=== PATIENT | male | born 1960 | race Caucasian/White ===

== ENCOUNTER 2020-02-21 15:22 | Observation (INO) | payer MEDICARE ==
--- NOTE | 2020-02-21 15:42 | ED ---
Abdominal Pain HPI - General Chief Complaint: Abdominal Pain Stated Complaint: abd & leg pain Time Seen by Provider: 02/21/20 15:36 Source: patient Limitations: no limitations - History of Present Illness Initial Comments: Patient is 59-year-old male presenting to the emergency room with a chief complaint of abdominal pain radiating to the leg. Patient states this pain was gradual onset and started approximately 2-3 weeks ago. Patient reports that his gradually increasing severity with pain mostly located in the right lower quadrant radiating distally to the foot. Patient reports he is feeling weaker in his right lower extremity. Patient states he is not able to sleep through the night due to the pain. She reports previous surgical history of orchiectomy with lymph node dissection with postsurgical complications which led to removal of the left kidney. Patient states he had a penis pump inserted and is concerned there might be a clot there. Patient states he is also currently on Suboxone therapy for chronic pain management. Denies any nausea vomiting diarr hea. Denies chest pain shortness of breath. - Related Data Allergies Allergy/AdvReac Type Severity Reaction Status Date / Time baclofen AdvReac Confusion Verified 02/21/20 15:33 Review of Systems ROS Statement: Those systems with pertinent positive or pertinent negative responses have been documented in the HPI. ROS Other: All systems not noted in ROS Statement are negative. Past Medical History Past Medical History: Coronary Artery Disease (CAD), Diabetes Mellitus, Deep Vein Thrombosis (DVT), Hyperlipidemia, Hypertension, Myocardial Infarction ([place]) Additional Past Medical History / Comment(s): Factro 5 History of Any Multi-Drug Resistant Organisms: None Reported Past Surgical History: Back Surgery Additional Past Surgical History / Comment(s): Cervical/back fusion, left testicle reomoved telated to cancer, lymph node dissection, ileum loop sx, left kidney removed, left knee replacement, penile pump, right shoulder sx, IVC filter Past Psychological History: No Psychological Hx Reported Smoking Status: Current every day smoker Past Alcohol Use History: None Reported Past Drug Use History: None Reported General Exam Limitations: no limitations General appearance: alert, in no apparent distress Head exam: Present: atraumatic, normocephalic, normal inspection Eye exam: Present: normal appearance, PERRL, EOMI Pupils: Present: normal accommodation ENT exam: Present: normal exam, normal oropharynx, mucous membranes moist, TM's normal bilaterally, normal external ear exam Neck exam: Present: normal inspection, full ROM. Absent: tenderness Respiratory exam: Present: normal lung sounds bilaterally. Absent: respiratory distress, wheezes Cardiovascular Exam: Present: regular rate, normal rhythm, normal heart sounds GI/Abdominal exam: Present: soft, tenderness (Right lower quadrant abdominal pain. Positive McBurney point.). Absent: distended, guarding, rebound, hernia exam: Present: circumcision. Absent: normal inspection (Suspected penile pump deformity along the ventral aspect of the penis), testicular tenderness Extremities exam: Present: normal inspection, full ROM, normal capillary refill, other (+2 posterior tibialis. Dorsalis pedis cannot be detected. No signs of ischemic changes on the right lower shunted.). Absent: tenderness Back exam: Present: normal inspection, full ROM. Absent: tenderness, CVA tenderness (R), CVA tenderness (L) Neurological exam: Present: alert, oriented X3, normal gait Psychiatric exam: Present: normal affect, normal mood Skin exam: Present: warm, dry, intact, normal color Course Vital Signs 02/21/20 02/21/20 02/21/20 15:27 17:10 18:08 Temperature 97.6 F Pulse Rate 64 56 L 57 L Respiratory 18 18 18 Rate Blood Pressure 139/87 159/98 162/90 O2 Sat by Pulse 95 99 98 Oximetry Medical Decision Making - Medical Decision Making Patient is 59-year-old male presenting to the emergency department with a chief complaint abdominal pain going to the leg. On physical examination, there is no suspected ischemic changes and right lower extremity. However, patient appears to have increased weakness along with his history of hypercholesterolemia and hypertension, there was a concern for PAD. Renal function is within normal limits. Radiology cleared the patient for CT imaging with contrast due to having only one kidney. CT of abdomen and pelvis reveals a possible cause of the pain in the right lower quadrant could be correlated to the function of the penis pump prosthesis. All major arterial passages in the right lower extremity are patent. There was no comment on the appendix. Patient was given analgesia. Case was discussed with who discussed the case with urology, , who does not believe the pain is related to prosthesis failure. Patient was given an additional 4 mg of morphine and Dilaudid. Patient appears to have intractable abdominal pain. Patient will be admitted for observation, pain control and a general surgery consult. Admitting physician is General surgery on consult - Lab Data Result diagrams: 02/21/20 16:08 02/21/20 16:08 Lab Results 02/21/20 02/21/20 02/21/20 Range/Units 16:08 16:08 16:08 WBC 5.4 (3.8-10.6) k/uL RBC 4.48 (4.30-5.90) m/uL Hgb 13.4 (13.0-17.5) gm/dL Hct 42.2 (39.0-53.0) % MCV 94.1 (80.0-100.0) fL MCH 30.0 (25.0-35.0) pg MCHC 31.8 (31.0-37.0) g/dL RDW 13.7 (11.5-15.5) % Plt Count 244 (150-450) k/uL Neutrophils % 65 % Lymphocytes % 24 % Monocytes % 5 % Eosinophils % 5 % Basophils % 1 % Neutrophils # 3.5 (1.3-7.7) k/uL Lymphocytes # 1.3 (1.0-4.8) k/uL Monocytes # 0.2 (0-1.0) k/uL Eosinophils # 0.2 (0-0.7) k/uL Basophils # 0.0 (0-0.2) k/uL PT (9.0-12.0) sec INR (<1.2) APTT (22.0-30.0) sec Sodium 139 (137-145) mmol/L Potassium 4.6 (3.5-5.1) mmol/L Chloride 104 (98-107) mmol/L Carbon Dioxide 31 H (22-30) mmol/L Anion Gap 4 mmol/L BUN 16 (9-20) mg/dL Creatinine 0.71 (0.66-1.25) mg/dL Est GFR (CKD-EPI)AfAm >90 (>60 ml/min/1.73 sqM) Est GFR (CKD-EPI)NonAf >90 (>60 ml/min/1.73 sqM) Glucose 95 (74-99) mg/dL Calcium 10.3 H (8.4-10.2) mg/dL Total Bilirubin 0.5 (0.2-1.3) mg/dL AST 33 (17-59) U/L ALT 17 (4-49) U/L Alkaline Phosphatase 68 (38-126) U/L Total Protein 7.1 (6.3-8.2) g/dL Albumin 4.3 (3.5-5.0) g/dL Urine Color Yellow Urine Appearance Clear (Clear) Urine pH 5.5 (5.0-8.0) Ur Specific [place] 1.025 (1.001-1.035) Urine Protein Negative (Negative) Urine Glucose (UA) Negative (Negative) Urine Ketones Negative (Negative) Urine Blood Negative (Negative) Urine Nitrite Negative (Negative) Urine Bilirubin Negative (Negative) Urine Urobilinogen <2.0 (<2.0) mg/dL Ur Leukocyte Esterase Negative (Negative) 02/21/20 Range/Units 16:08 WBC (3.8-10.6) k/uL RBC (4.30-5.90) m/uL Hgb (13.0-17.5) gm/dL Hct (39.0-53.0) % MCV (80.0-100.0) fL MCH (25.0-35.0) pg MCHC (31.0-37.0) g/dL RDW (11.5-15.5) % Plt Count (150-450) k/uL Neutrophils % % Lymphocytes % % Monocytes % % Eosinophils % % Basophils % % Neutrophils # (1.3-7.7) k/uL Lymphocytes # (1.0-4.8) k/uL Monocytes # (0-1.0) k/uL Eosinophils # (0-0.7) k/uL Basophils # (0-0.2) k/uL PT 10.1 (9.0-12.0) sec INR 1.0 (<1.2) APTT 28.9 (22.0-30.0) sec Sodium (137-145) mmol/L Potassium (3.5-5.1) mmol/L Chloride (98-107) mmol/L Carbon Dioxide (22-30) mmol/L Anion Gap mmol/L BUN (9-20) mg/dL Creatinine (0.66-1.25) mg/dL Est GFR (CKD-EPI)AfAm (>60 ml/min/1.73 sqM) Est GFR (CKD-EPI)NonAf (>60 ml/min/1.73 sqM) Glucose (74-99) mg/dL Calcium (8.4-10.2) mg/dL Total Bilirubin (0.2-1.3) mg/dL AST (17-59) U/L ALT (4-49) U/L Alkaline Phosphatase (38-126) U/L Total Protein (6.3-8.2) g/dL Albumin (3.5-5.0) g/dL Urine Color Urine Appearance (Clear) Urine pH (5.0-8.0) Ur Specific [place] (1.001-1.035) Urine Protein (Negative) Urine Glucose (UA) (Negative) Urine Ketones (Negative) Urine Blood (Negative) Urine Nitrite (Negative) Urine Bilirubin (Negative) Urine Urobilinogen (<2.0) mg/dL Ur Leukocyte Esterase (Negative) Disposition Clinical Impression: Intractable abdominal pain Disposition: ADMITTED IP TO THIS [facility] Condition: Good Instructions (If sedation given, give patient instructions): Abdominal Pain (ED) Additional Instructions: She will be admitted Is patient prescribed a controlled substance at d/c from ED?: No Referrals: Joe Weaver DO [Primary Care Provider] - 1-2 days Time of Disposition: 19:36
[2020-02-21] MEDS ORDERED: MORPHINE SULFATE 4 MG/ML SYRINGE IV STA (15:55)
[2020-02-21] MEDS ORDERED: SODIUM CHLORIDE 0.9% 500 ML 500 ML IV STA (15:55)
[2020-02-21 16:26] LABS: Basophils % (A) 1 %; Eosinophils # (A) 0.2 k/uL (0-0.7); Eosinophils % (A) 5 %; HCT 42.2 % (39.0-53.0); HGB 13.4 gm/dL (13.0-17.5); Lymphocytes # (A) 1.3 k/uL (1.0-4.8); Lymphocytes % (A) 24 %; MCHC 31.8 g/dL (31.0-37.0); MCV 94.1 fL (80.0-100.0); Mean Platelet Volume 6.5; Monocytes # (A) 0.2 k/uL (0-1.0); Monocytes % (A) 5 %; Neutrophils # (A) 3.5 k/uL (1.3-7.7); Neutrophils % (A) 65 %; Platelet Count 244 k/uL (150-450); RBC 4.48 m/uL (4.30-5.90); RDW 13.7 % (11.5-15.5); WBC 5.4 k/uL (3.8-10.6)
[2020-02-21 16:28] LABS: Appearance,Urine Clear (Clear); Bilirubin,Urine Negative (Negative); Blood,Urine Negative (Negative); Color,Urine Yellow; Glucose,Urine (UA) Negative (Negative); Ketones,Urine Negative (Negative); Leukocyte Esterase,Urine Negative (Negative); Nitrite,Urine Negative (Negative); PH, Urine 5.5 (5.0-8.0); Protein,Urine Negative (Negative); Specific Gravity,Urine 1.025 (1.001-1.035); Urobilinogen,Urine <2.0 mg/dL (<2.0)
[2020-02-21 16:36] LABS: ALT 17 U/L (4-49); AST 33 U/L (17-59); African American GFR (CKD) >90 (>60 ml/min/1.73 sqM); Albumin 4.3 g/dL (3.5-5.0); Alkaline Phosphatase 68 U/L (38-126); Anion Gap 4 mmol/L; Blood Urea Nitrogen 16 mg/dL (9-20); Calcium 10.3 mg/dL (8.4-10.2); Carbon Dioxide 31 mmol/L (22-30); Chloride 104 mmol/L (98-107); Glucose 95 mg/dL (74-99); Non-African American GFR(CKD) >90 (>60 ml/min/1.73 sqM); Potassium 4.6 mmol/L (3.5-5.1); Sodium 139 mmol/L (137-145); Total Bilirubin 0.5 mg/dL (0.2-1.3); Total Protein 7.1 g/dL (6.3-8.2)
[2020-02-21 16:38] LABS: Partial Thromboplastin Time 28.9 sec (22.0-30.0); Prothrombin Time 10.1 sec (9.0-12.0)
[2020-02-21] MEDS ORDERED: MORPHINE SULFATE 4 MG/ML SYRINGE IVP STA (18:00)
--- NOTE | 2020-02-21 18:18 | CT ---
EXAMINATION TYPE: CT angio abd aorta w/Runoff DATE OF EXAM: 02/21/2020 COMPARISON: None HISTORY: Right lower quadrant pain (question appendicitis) that radiates down right leg. PAD in right leg. CT DLP: 2040.2 mGycm, Automated Exposure Control for Dose Reduction was Utilized. CONTRAST: CT scan of the abdomen and pelvis is performed without oral and without and with IV Contrast, patient injected with 100 mL of Isovue 370. Three-dimensional reconstructions performed on an alternate work station FINDINGS: There are extensive postop changes within the abdomen, retroperitoneal region, there is art ifact present, additionally patient shows posterior fusion changes at L4-S1 also causing some streak artifact. Postop changes noted to the bowel, there are bowel sutures present. Penile prosthesis is al so in place, the reservoir appears deflated in the right lower quadrant. LUNG BASES: No significant abnormality is appreciated. LIVER/GB: No significant abnormality is appreciated. PANCREAS: No significant abnormality is seen. SPLEEN: No significant abnormality is seen. ADRENALS: No significant abnormality is seen. KIDNEYS: Left kidney is not seen. Right kidney shows compensatory hypertrophy change. BOWEL: No significant abnormality is seen. PROSTATE/SEMINAL VESICLES: No gross abnormality seen. Urinary bladder shows wall thickening possibly due to outlet obstruction. LYMPH NODES: No greater than 1cm abdominal or pelvic lymph nodes are appreciated. OSSEOUS STRUCTURES: Postop change noted to the left knee. Probable injection granuloma over the right gluteal region. OTHER: The aorta does not show any evident dissection or aneurysm. Portions are obscured by artifact. The common iliac, internal and external iliac, common femoral, deep and superficial femoral arteries are patent. Popliteal arteries and trifurcations proximally are patent, outflow not well seen distal ly within the leg likely due to timing of the bolus and scanning. Inferior vena cava filter is presen t on the right in the infrarenal location. IMPRESSION: Difficult related reservoir in the right lower quadrant, correlate for function of the pr osthesis. Additional findings above. Additional findings above.
[2020-02-21] MEDS ORDERED: HYDROmorphone 0.5 MG/0.5 ML SYRINGE IVP PRN ×2 (19:23→23:23)
[2020-02-21] MEDS ORDERED: NALOXONE 0.4 MG/ML 1 ML VIAL IV PRN (19:23)
[2020-02-21] MEDS ORDERED: ACETAMINOPHEN TAB 325 MG TAB PO PRN (19:23)
[2020-02-21] MEDS ORDERED: ONDANSETRON 4 MG/2 ML VIAL IVP PRN (19:23)
[2020-02-21 20:53] LABS: Glucose,Whole Blood 80 mg/dL (75-99)
[2020-02-21] MEDS: SODIUM CHLORIDE 0.9% 1,000 ML IV SCH (21:26)
[2020-02-21] MEDS: HYDROmorphone 1 MG/ML 1 ML SYRINGE IVP PRN (21:26)
[2020-02-21] MEDS: LORazepam 2 MG/ML INJ IV PRN (22:42)
[2020-02-21] MEDS ORDERED: KETOROLAC 15 MG/ML 1 ML VIAL IVP PRN (23:11)
[2020-02-21] MEDS ORDERED: PREGABALIN 50 MG CAP PO SCH (23:15)
--- NOTE | 2020-02-21 23:41 | P.HPIM ---
History of Present Illness H&P Date: 02/21/20 Chief Complaint: abd pain 59 year old male with DM, testicular cancer 1983, factor 5 laiden and venous thromboembolism, fusion L4-S1 patient comes in with complaint of 3 week history of right lower quadrant abd pain , he was evaluated by his PCP, who gave him a 10 course of ABx for presumed colitis , with no much benefit, then he was referred to orthopedics for his chronic low back pain and radiculopathy, as pain radiated from his right groin all way to his big toe on the right side. with some numbness over the sole of his right foot. he reports sharp shooting pain 10/10 in severity at times with certain positions, but improves with laying down. denies any nausea , vomting, fever, chest pain trouble breathing, diarrhea or GI bleeding, denies any injuries. 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 patient was seen by orthopedic as outpatient , and ordered an MRI of his lower back that is scheduled for the he is currently using subaxone for pain control, when i asked him if that was for addiction , he denied , and said , that he preferred this medicine over oxycodone and his doctor has been prescribing it for him patient had a CT of the abd in the ED, no acute pathology noted, and blood work was unremarkable overall. patient admitted for pain control , surgery and ortho evaluation Review of Systems Pertinent positives as noted in HPI. All other systems were reviewed and are negative Past Medical History Past Medical History: Coronary Artery Disease (CAD), Cancer, Diabetes Mellitus, Deep Vein Thrombosis (DVT), Hyperlipidemia, Hypertension, Myocardial Infarction ([place]), Pneumonia, Sleep Apnea/CPAP/BIPAP Additional Past Medical History / Comment(s): Factor 5, sleep apnea resolved with weight loss, cancer left testicular, gynocomastia wih surgical correction, psoriatic arthritis with infusions Last Myocardial Infarction Date:: 2012 History of Any Multi-Drug Resistant Organisms: None Reported Past Surgical History: Back Surgery Additional Past Surgical History / Comment(s): Cervical/back fusion, left testicle reomoved telated to cancer, lymph node dissection, ileum loop sx, left kidney removed, left knee replacement, penile pump, right shoulder sx, IVC filter, neck and arm tumor removal, colonoscopies with polyp removal Past Anesthesia/Blood Transfusion Reactions: No Reported Reaction Past Psychological History: Depression Smoking Status: Current every day smoker Past Alcohol Use History: None Reported Past Drug Use History: None Reported - Past Family History Mother Additional Family Medical History / Comment(s): arthritis Father Additional Family Medical History / Comment(s): AAA Brother(s) Family Medical History: No Reported History Sister(s) Family Medical History: No Reported History Son(s) Additional Family Medical History / Comment(s): bowel issues Medications and Allergies Home Medications Medication Instructions Recorded Confirmed Type Aspirin EC [Ecotrin Low Dose] 81 mg PO DAILY 02/21/20 02/21/20 History Budesonide/Formoterol Fumarate 2 puff INHALATION RT-BID 02/21/20 02/21/20 History [Symbicort 160-4.5 Mcg Inhaler] Buprenorphine HCl/Naloxone HCl 1 film SUBLINGUAL BID PRN 02/21/20 02/21/20 History [Buprenorp-Nalox 4-1 mg Sl Film] Calcium Citrate/Vitamin D3 1 cap PO DAILY 02/21/20 02/21/20 History [Citracal + D Maximum Caplet] Cholecalciferol [Vitamin D3 (25 5,000 unit PO DAILY 02/21/20 02/21/20 History Mcg = 1000 Iu)] DULoxetine HCL [Cymbalta] 60 mg PO DAILY 02/21/20 02/21/20 History Ergocalciferol [Vitamin D2] 50,000 unit PO SA 02/21/20 02/21/20 History Fenofibrate [Lofibra] 160 mg PO DAILY 02/21/20 02/21/20 History Folic Acid 1 mg PO DAILY 02/21/20 02/21/20 History Metoprolol Succinate (ER) [Toprol 12.5 mg PO DAILY 02/21/20 02/21/20 History Xl] Multivitamins, Thera [Multivitamin 1 tab PO DAILY 02/21/20 02/21/20 History (formulary)] Pregabalin 50 mg PO TID 02/21/20 02/21/20 History Psyllium Husk [Metamucil] 0.4 gm PO DAILY 02/21/20 02/21/20 History Rivaroxaban [Xarelto] 20 mg PO DAILY 02/21/20 02/21/20 History Simvastatin [Zocor] 40 mg PO HS 02/21/20 02/21/20 History Ultra T Male Max 1 cap PO DAILY 02/21/20 02/21/20 History Allergies Allergy/AdvReac Type Severity Reaction Status Date / Time baclofen AdvReac Confusion Verified 02/21/20 20:45 Physical Exam Vitals: Vital Signs Temp Pulse Resp BP Pulse Ox 02/21/20 19:40 98.0 F 52 L 18 150/94 99 02/21/20 18:08 57 L 18 162/90 98 02/21/20 17:10 56 L 18 159/98 99 02/21/20 15:27 97.6 F 64 18 139/87 95 Intake and Output 02/21/20 02/21/20 02/21/20 06:59 14:59 22:59 Other: Voiding Method Toilet Weight 77.111 kg Constitutional: No acute distress, conversant, pleasant Eyes: Anicteric sclerae, moist conjunctiva, Pupils equal round reactive to light ENMT: NC/AT Oropharynx clear, no erythema,or exudates Neck: Supple, FROM, no masses, or JVD No carotid bruits No thyromegaly Lungs: Clear to auscultation Clear to percussion Normal respiratory effort, no accessory muscle use Cardiovascular: Heart regular in rate and rhythm, No murmurs, gallops, or rubs No peripheral edema Abdominal: Soft tenderness to palpation of the right lower quadrant , no guarding, rebound or rigidity Abdomen moving with respiration Normoactive bowel sounds No hepatomegaly, No splenomegaly No palpable mass No abdominal wall hernia noted Skin: Normal temperature, tone, texture, turgor No induration No subcutaneous nodules No rash, lesions No ulcers palpable lump over the upper outer quadrant of the right buttock, CT showed possible post injection granuloma Extremities: No digital cyanosis No clubbing Pedal pulses intact and symmetrical Radial pulses intact and symmetrical No calf tenderness Psychiatric: Alert and oriented to person, place and time Appropriate affect fair judgement Neuro Muscles Strength 5/5 in bilateral upper extremities, and left lower extremity, and distal muscle group of right lower extremity , some weakness 4/5 of proximal muscle group of the right lower extremity some limitations due to pain Sensation to light touch grossly present throughout Cranial nerves II-XII grossly intact No focal sensory deficits Lymphatics: no palpable cervical or supraclavicular , or inguinal lymph nodes Results CBC & Chem 7: 02/21/20 16:08 02/21/20 16:08 Labs: Abnormal Lab Results - Last 24 Hours (Table) 02/21/20 Range/Units 16:08 Carbon Dioxide 31 H (22-30) mmol/L Calcium 10.3 H (8.4-10.2) mg/dL Thrombosis Risk Factor Assmnt - Choose All That Apply Any of the Below Risk Factors Present?: No Other Risk Factors: Yes Each Risk Factor Represents 2 Points: Age 61-74 years Each Risk Factor Represents 3 Points: Positive Factor V Leiden, History of DVT/PE Other congenital or acquired thrombophilia - If yes, enter type in comment: No Thrombosis Risk Factor Assessment Total Risk Factor Score: 8 Thrombosis Risk Factor Assessment Level: High Risk Assessment and Plan Assessment: chronic low back pain with radiculopathy to the right lower extremity pain control with opioids and toradol ortho consult chronic conditions venous thromboembolism with F5 laiden , on xarelto , s/p IVC filter DM , insulin sliding scale Hypertension , resume home meds history of left testicular cancer, s/p penile prosthesis with malfunction of reservoir , consider OP follow up h/o CAD CODE STATUS:full code DVT prophylaxis: on xarelto Discussed with: Patient, ER, RN Anticipated length of stay < than [address]: home A total of 65 minutes was spent on the care of this complex patient more than 50% of the time was spent in counseling and care coordination.
[2020-02-21] MEDS: ATORVASTATIN 20 MG TAB PO SCH (23:55)
[2020-02-21] MEDS: PREGABALIN 25 MG CAP PO SCH (23:56)
[2020-02-22] MEDS: HYDROmorphone 1 MG/ML 1 ML SYRINGE IVP PRN ×7 (00:11→21:06)
[2020-02-22] MEDS: SYMBICORT 160-4.5 MCG INHALER INHALATION SCH ×3 (02:03→19:31)
[2020-02-22 06:26] LABS: Glucose,Whole Blood 88 mg/dL (75-99)
[2020-02-22 07:36] LABS: Basophils % (A) 1 %; Eosinophils # (A) 0.2 k/uL (0-0.7); Eosinophils % (A) 6 %; HCT 38.7 % (39.0-53.0); HGB 12.5 gm/dL (13.0-17.5); Lymphocytes # (A) 1.3 k/uL (1.0-4.8); Lymphocytes % (A) 35 %; MCH 30.4 pg (25.0-35.0); MCHC 32.2 g/dL (31.0-37.0); MCV 94.5 fL (80.0-100.0); Mean Platelet Volume 6.7; Monocytes # (A) 0.2 k/uL (0-1.0); Monocytes % (A) 6 %; Neutrophils # (A) 1.8 k/uL (1.3-7.7); Neutrophils % (A) 48 %; Platelet Count 218 k/uL (150-450); RDW 13.6 % (11.5-15.5); WBC 3.7 k/uL (3.8-10.6)
[2020-02-22] MEDS: INSULIN ASPART (NovoLOG) 100 UNIT/ML VIAL SQ SCH ×3 (07:42→17:05)
[2020-02-22 07:57] LABS: ALT 14 U/L (4-49); AST 27 U/L (17-59); African American GFR (CKD) >90 (>60 ml/min/1.73 sqM); Albumin 3.2 g/dL (3.5-5.0); Alkaline Phosphatase 63 U/L (38-126); Anion Gap 2 mmol/L; Blood Urea Nitrogen 17 mg/dL (9-20); Calcium 9.3 mg/dL (8.4-10.2); Carbon Dioxide 29 mmol/L (22-30); Chloride 109 mmol/L (98-107); Glucose 89 mg/dL (74-99); Non-African American GFR(CKD) >90 (>60 ml/min/1.73 sqM); Potassium 4.7 mmol/L (3.5-5.1); Sodium 140 mmol/L (137-145); Total Bilirubin 0.3 mg/dL (0.2-1.3); Total Protein 5.7 g/dL (6.3-8.2)
[2020-02-22] MEDS: DULoxetine HCL 60 MG CAPSULE.DR PO SCH (09:25)
[2020-02-22] MEDS: PREGABALIN 25 MG CAP PO SCH ×3 (09:25→21:02)
[2020-02-22] MEDS: METOPROLOL SUCCINATE (ER) 25 MG TAB.ER.24H PO SCH (09:25)
[2020-02-22] MEDS: RIVAROXABAN 20 MG TAB PO SCH (09:25)
[2020-02-22] MEDS: ASPIRIN 81 MG PO SCH (09:26)
[2020-02-22] MEDS: PSYLLIUM HUSK 100% 6 GM PACKET PO SCH (09:26)
--- NOTE | 2020-02-22 11:18 | XR ---
EXAMINATION TYPE: XR lumbar spine 2 or 3V DATE OF EXAM: 02/22/2020 CLINICAL HISTORY: Low back pain. TECHNIQUE: Frontal and lateral images of the lumbar spine are obtained. COMPARISON: CTA with runoff from yesterday. FINDINGS: There are 5 lumbar type vertebral bodies redemonstrated. Posterior interpedicular rods and screws transfix L4-S1 levels bilaterally. Artificial disc material noted at these levels. Mild disc space narrowing and anterior spurring L2-L3. Mild disc space L3-L4 level. Alignment satisfactory. Num erous overlying surgical clips from prior abdominal aortic bypass surgery redemonstrated. There is IV C filter at the right L3-L4 level again seen. IMPRESSION: As above
[2020-02-22 11:49] LABS: Glucose,Whole Blood 80 mg/dL (75-99)
[2020-02-22] MEDS: SODIUM CHLORIDE 0.9% 1,000 ML IV SCH (12:47)
--- NOTE | 2020-02-22 13:42 | P.GSCN ---
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 Patient presents to the hospital with a three-week history of right lower quadrant abdominal pain. Patient does report the pain is in the right lower quadrant and right groin area that radiates down his right leg. He's also reporting some numbness in the right foot. He also reported a 20 pound weight loss over the last 3 weeks. He denies any fever, chills, sweats, nausea or vomiting, any change in bowel habits. PAST MEDICAL HISTORY: See list. PAST SURGICAL HISTORY: See list. MEDICATIONS: See list. ALLERGIES: See list. SOCIAL HISTORY: No illicit drug use. REVIEW OF SYSTEMS: CONSTITUTIONAL: Denies fever or chills. HEENT: Denies blurred vision, vision changes, or eye pain. Denies hemoptysis CARDIOVASCULAR: Denies chest pain or pressure. RESPIRATORY: No shortness of breath. GASTROINTESTINAL: See HPI for pertinent findings HEMATOLOGIC: Denies bleeding disorders. GENITOURINARY: Denies any blood in urine or increased urinary frequency. SKIN: Denies pruitis. Denies rash. PHYSICAL EXAM: VITAL SIGNS: Reviewed GENERAL: Well-developed in no acute distress. HEENT: No sclera icterus. Extraocular movements grossly intact. Moist buccal mucosa. Head is atraumatic, normocephalic. No nasal drainage. ABDOMEN: Soft. Nondistended nontender NEUROLOGIC: Alert and oriented. Cranial nerves II through XII grossly intact. LABORATORY DATA: WBC 3.7 hemoglobin 12.5 LFTs normal UA negative IMAGING: Computed tomography scan abdomen and pelvis difficult related reservoir in the right lower quadrant, correlate for function of the prosthesis ASSESSMENT: 1. Right lower quadrant groin pain likely related to patient's orthopedic problems. He has a known lumbar back fusion with chronic back pain and pain now radiating down his right leg. 2. 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 History of DVT and factor V Leiden on Xarelto and history of IVC filter PLAN: -Agree with Spinal orthopedic consult -No surgical intervention from general surgery standpoint -Start patient on regular diet Thank you for this consultation. Physician [employer] Consultant note has been reviewed by physician. Signing provider agrees with the documented findings, assessment, and plan of care. Past Medical History Past Medical History: Coronary Artery Disease (CAD), Cancer, Diabetes Mellitus, Deep Vein Thrombosis (DVT), Hyperlipidemia, Hypertension, Myocardial Infarction ([place]), Pneumonia, Sleep Apnea/CPAP/BIPAP Additional Past Medical History / Comment(s): Factor 5, sleep apnea resolved with weight loss, cancer left testicular, gynocomastia wih surgical correction, psoriatic arthritis with infusions Last Myocardial Infarction Date:: 2012 History of Any Multi-Drug Resistant Organisms: None Reported Past Surgical History: Back Surgery Additional Past Surgical History / Comment(s): Cervical/back fusion, left testicle reomoved telated to cancer, lymph node dissection, ileum loop sx, left kidney removed, left knee replacement, penile pump, right shoulder sx, IVC filter, neck and arm tumor removal, colonoscopies with polyp removal Past Anesthesia/Blood Transfusion Reactions: No Reported Reaction Past Psychological History: Depression Smoking Status: Current every day smoker Past Alcohol Use History: None Reported Past Drug Use History: None Reported - Past Family History Mother Additional Family Medical History / Comment(s): arthritis Father Additional Family Medical History / Comment(s): AAA Brother(s) Family Medical History: No Reported History Sister(s) Family Medical History: No Reported History Son(s) Additional Family Medical History / Comment(s): bowel issues Medications and Allergies Home Medications Medication Instructions Recorded Confirmed Type Aspirin EC [Ecotrin Low Dose] 81 mg PO DAILY 02/21/20 02/21/20 History Budesonide/Formoterol Fumarate 2 puff INHALATION RT-BID 02/21/20 02/21/20 History [Symbicort 160-4.5 Mcg Inhaler] Buprenorphine HCl/Naloxone HCl 1 film SUBLINGUAL BID PRN 02/21/20 02/21/20 History [Buprenorp-Nalox 4-1 mg Sl Film] Calcium Citrate/Vitamin D3 1 cap PO DAILY 02/21/20 02/21/20 History [Citracal + D Maximum Caplet] Cholecalciferol [Vitamin D3 (25 5,000 unit PO DAILY 02/21/20 02/21/20 History Mcg = 1000 Iu)] DULoxetine HCL [Cymbalta] 60 mg PO DAILY 02/21/20 02/21/20 History Ergocalciferol [Vitamin D2] 50,000 unit PO SA 02/21/20 02/21/20 History Fenofibrate [Lofibra] 160 mg PO DAILY 02/21/20 02/21/20 History Folic Acid 1 mg PO DAILY 02/21/20 02/21/20 History Metoprolol Succinate (ER) [Toprol 12.5 mg PO DAILY 02/21/20 02/21/20 History Xl] Multivitamins, Thera [Multivitamin 1 tab PO DAILY 02/21/20 02/21/20 History (formulary)] Pregabalin 50 mg PO TID 02/21/20 02/21/20 History Psyllium Husk [Metamucil] 0.4 gm PO DAILY 02/21/20 02/21/20 History Rivaroxaban [Xarelto] 20 mg PO DAILY 02/21/20 02/21/20 History Simvastatin [Zocor] 40 mg PO HS 02/21/20 02/21/20 History Ultra T Male Max 1 cap PO DAILY 02/21/20 02/21/20 History Allergies Allergy/AdvReac Type Severity Reaction Status Date / Time baclofen AdvReac Confusion Verified 02/21/20 20:45 Surgical - Exam Vital Signs Temp Pulse Resp BP Pulse Ox 97.6 F 64 18 139/87 95 02/21/20 15:27 02/21/20 15:27 02/21/20 15:27 02/21/20 15:27 02/21/20 15:27 Results - Labs 02/22/20 07:20 02/22/20 07:20 Abnormal Lab Results - Last 24 Hours (Table) 02/21/20 02/22/20 02/22/20 Range/Units 16:08 07:20 07:20 WBC 3.7 L (3.8-10.6) k/uL RBC 4.10 L (4.30-5.90) m/uL Hgb 12.5 L (13.0-17.5) gm/dL Hct 38.7 L (39.0-53.0) % Chloride 109 H (98-107) mmol/L Carbon Dioxide 31 H (22-30) mmol/L Calcium 10.3 H (8.4-10.2) mg/dL Total Protein 5.7 L (6.3-8.2) g/dL Albumin 3.2 L (3.5-5.0) g/dL Diabetes panel 02/21/20 02/22/20 Range/Units 16:08 07:20 Sodium 139 140 (137-145) mmol/L Potassium 4.6 4.7 (3.5-5.1) mmol/L Chloride 104 109 H (98-107) mmol/L Carbon Dioxide 31 H 29 (22-30) mmol/L BUN 16 17 (9-20) mg/dL Creatinine 0.71 0.71 (0.66-1.25) mg/dL Glucose 95 89 (74-99) mg/dL Calcium 10.3 H 9.3 (8.4-10.2) mg/dL AST 33 27 (17-59) U/L ALT 17 14 (4-49) U/L Alkaline Phosphatase 68 63 (38-126) U/L Total Protein 7.1 5.7 L (6.3-8.2) g/dL Albumin 4.3 3.2 L (3.5-5.0) g/dL Calcium panel 02/21/20 02/22/20 Range/Units 16:08 07:20 Calcium 10.3 H 9.3 (8.4-10.2) mg/dL Albumin 4.3 3.2 L (3.5-5.0) g/dL Pituitary panel 02/21/20 02/22/20 Range/Units 16:08 07:20 Sodium 139 140 (137-145) mmol/L Potassium 4.6 4.7 (3.5-5.1) mmol/L Chloride 104 109 H (98-107) mmol/L Carbon Dioxide 31 H 29 (22-30) mmol/L BUN 16 17 (9-20) mg/dL Creatinine 0.71 0.71 (0.66-1.25) mg/dL Glucose 95 89 (74-99) mg/dL Calcium 10.3 H 9.3 (8.4-10.2) mg/dL Adrenal panel 02/21/20 02/22/20 Range/Units 16:08 07:20 Sodium 139 140 (137-145) mmol/L Potassium 4.6 4.7 (3.5-5.1) mmol/L Chloride 104 109 H (98-107) mmol/L Carbon Dioxide 31 H 29 (22-30) mmol/L BUN 16 17 (9-20) mg/dL Creatinine 0.71 0.71 (0.66-1.25) mg/dL Glucose 95 89 (74-99) mg/dL Calcium 10.3 H 9.3 (8.4-10.2) mg/dL Total Bilirubin 0.5 0.3 (0.2-1.3) mg/dL AST 33 27 (17-59) U/L ALT 17 14 (4-49) U/L Alkaline Phosphatase 68 63 (38-126) U/L Total Protein 7.1 5.7 L (6.3-8.2) g/dL Albumin 4.3 3.2 L (3.5-5.0) g/dL
--- NOTE | 2020-02-22 13:56 | P.CNOR ---
History of Present Illness - [facility] Consult date: 02/22/20 History of present illness: This patient is a 59 year old male with a past medical history of diabetes, testicular cancer, factor V leiden, DVT currently on Xarelto, lumbar fusion L4- S1 that presented today [facility] emergency department on 02/21/20 with complaints of right lower quadrant pain, with radiation into the groin. He was treated by his PCP on an outpatient basis with oral antibiotics, with no relief. Patient was also referred to orthopedic surgery for back pain. Patient states he was referred to a spine surgeon in [place]. He states he has a history of a lumbar fusion about 5 years, until he began experiencing an increase in low back pain about 3-4 months ago. He states the spine surgeon in [place] ordered an MRI, which was scheduled for February 24. Patient presented to ED yesterday due to increasing right lower quadrant pain. CT abdomen showed no obvious pathology. Patient was admitted under the care of internal medicine with a consult placed to general surgery and orthopedic surgery. At the time of my exam, the patient is complaining of right lower quadrant pain. He is also complaining of mild low back pain. He states he is experiencing pain that radiates down the right leg into the foot. He states that pain is chronic, although has been increasing in 3-4 months. There was no injury. He states he takes suboxone for pain, he used to take Percocet, but patient states it was choice to switch to suboxone. He denies bowel or bladder incontinence. He denies saddle paresthesias. He states he otherwise feels well. He denies severe, chills, nausea, vomiting. Vital signs stable. Past Medical History Past Medical History: Coronary Artery Disease (CAD), Cancer, Diabetes Mellitus, Deep Vein Thrombosis (DVT), Hyperlipidemia, Hypertension, Myocardial Infarction ([place]), Pneumonia, Sleep Apnea/CPAP/BIPAP Additional Past Medical History / Comment(s): Factor 5, sleep apnea resolved with weight loss, cancer left testicular, gynocomastia wih surgical correction, psoriatic arthritis with infusions Last Myocardial Infarction Date:: 2012 History of Any Multi-Drug Resistant Organisms: None Reported Past Surgical History: Back Surgery Additional Past Surgical History / Comment(s): Cervical/back fusion, left testicle reomoved telated to cancer, lymph node dissection, ileum loop sx, left kidney removed, left knee replacement, penile pump, right shoulder sx, IVC filter, neck and arm tumor removal, colonoscopies with polyp removal Past Anesthesia/Blood Transfusion Reactions: No Reported Reaction Past Psychological History: Depression Smoking Status: Current every day smoker Past Alcohol Use History: None Reported Past Drug Use History: None Reported - Past Family History Mother Additional Family Medical History / Comment(s): arthritis Father Additional Family Medical History / Comment(s): AAA Brother(s) Family Medical History: No Reported History Sister(s) Family Medical History: No Reported History Son(s) Additional Family Medical History / Comment(s): bowel issues Medications and Allergies Home Medications Medication Instructions Recorded Confirmed Type Aspirin EC [Ecotrin Low Dose] 81 mg PO DAILY 02/21/20 02/21/20 History Budesonide/Formoterol Fumarate 2 puff INHALATION RT-BID 02/21/20 02/21/20 History [Symbicort 160-4.5 Mcg Inhaler] Buprenorphine HCl/Naloxone HCl 1 film SUBLINGUAL BID PRN 02/21/20 02/21/20 History [Buprenorp-Nalox 4-1 mg Sl Film] Calcium Citrate/Vitamin D3 1 cap PO DAILY 02/21/20 02/21/20 History [Citracal + D Maximum Caplet] Cholecalciferol [Vitamin D3 (25 5,000 unit PO DAILY 02/21/20 02/21/20 History Mcg = 1000 Iu)] DULoxetine HCL [Cymbalta] 60 mg PO DAILY 02/21/20 02/21/20 History Ergocalciferol [Vitamin D2] 50,000 unit PO SA 02/21/20 02/21/20 History Fenofibrate [Lofibra] 160 mg PO DAILY 02/21/20 02/21/20 History Folic Acid 1 mg PO DAILY 02/21/20 02/21/20 History Metoprolol Succinate (ER) [Toprol 12.5 mg PO DAILY 02/21/20 02/21/20 History Xl] Multivitamins, Thera [Multivitamin 1 tab PO DAILY 02/21/20 02/21/20 History (formulary)] Pregabalin 50 mg PO TID 02/21/20 02/21/20 History Psyllium Husk [Metamucil] 0.4 gm PO DAILY 02/21/20 02/21/20 History Rivaroxaban [Xarelto] 20 mg PO DAILY 02/21/20 02/21/20 History Simvastatin [Zocor] 40 mg PO HS 02/21/20 02/21/20 History Ultra T Male Max 1 cap PO DAILY 02/21/20 02/21/20 History Allergies Allergy/AdvReac Type Severity Reaction Status Date / Time baclofen AdvReac Confusion Verified 02/21/20 20:45 Physical Examination On examination, the patient is lying in bed in no apparent distress. He is alert and oriented 3. His head appears normocephalic and. His palate appears nonlabored. On inspection of the low back there is no ecchymosis, erythema, skin discoloration. No open wounds or lacerations. There is mild pain on pal pation of the lumbar spine. No pain on palpation of the C-spine, thoracic spine. Patient has full strength in his bilateral lower extremities. He is able to perform a straight leg raise bilaterally. No weakness with hip flexion, and plantarflexion or dorsiflexion of the ankle or great toe. Motor and sensory is intact in the bilateral extremities. Dorsalis pedis pulse +2. Bilateral lower extremities are warm and well perfused with brisk capillary refill distally. Calf soft and nontender to palpation bilaterally. Results - Labs Labs: Abnormal Lab Results - Last 24 Hours (Table) 02/21/20 02/22/20 02/22/20 Range/Units 16:08 07:20 07:20 WBC 3.7 L (3.8-10.6) k/uL RBC 4.10 L (4.30-5.90) m/uL Hgb 12.5 L (13.0-17.5) gm/dL Hct 38.7 L (39.0-53.0) % Chloride 109 H (98-107) mmol/L Carbon Dioxide 31 H (22-30) mmol/L Calcium 10.3 H (8.4-10.2) mg/dL Total Protein 5.7 L (6.3-8.2) g/dL Albumin 3.2 L (3.5-5.0) g/dL H & H 02/21/20 02/22/20 Range/Units 16:08 07:20 Hgb 13.4 12.5 L (13.0-17.5) gm/dL Hct 42.2 38.7 L (39.0-53.0) % Coagulation 02/21/20 Range/Units 16:08 INR 1.0 (<1.2) Result Diagrams: 02/22/20 07:20 02/22/20 07:20 Assessment and Plan Assessment: Low back pain History of lumbar fusion about 5 years ago by outside surgeon Plan: - The clinical findings were discussed with the patient. The patient was discussed with Dr. Retana. Recommended we obtain x-rays of the lumbar spine to further evaluate his pain. - Further recommendations pending review of images. - Medical management per admitting team.
[2020-02-22 13:59] VITALS: BMI 23.0
--- NOTE | 2020-02-22 16:08 | P.PN ---
Subjective Progress Note Date: 02/22/20 Patient was seen and examined. No acute events overnight. Patient reports continued bilateral groin pain with radiation of this pain into his ventura along with numbness in the sole of his foot. He denies any chest pain, shortness breath or palpitations. No nausea or vomiting. No fever or chills. Objective - Vital Signs Vital signs: Vital Signs Temp 97.6 F 02/22/20 15:00 Pulse 66 02/22/20 15:00 Resp 16 02/22/20 15:00 BP 111/64 02/22/20 15:00 Pulse Ox 96 02/22/20 09:00 Intake & Output 02/21/20 02/22/20 02/22/20 18:59 06:59 18:59 Weight 77.111 kg 77.111 kg Other: Voiding Method Toilet Toilet # Voids 2 1 - Exam General: [non toxic], [no distress], [appears at stated age] Derm: [warm], [dry] Head: [atraumatic], [normocephalic], [symmetric] Eyes: [EOMI], [no lid lag], [anicteric sclera] Mouth: [no lip lesion], [mucus membranes moist] Cardiovascular: [S1S2 reg], [no murmur], [positive DP pulse bilateral], Lungs: [CTA bilateral], [no rhonchi, no rales] , [no accessory muscle use] Abdominal: [soft], [ nontender to palpation], [no guarding], [no appreciable organomegaly] Ext: [no gross muscle atrophy], [no edema], [no contractures] Neuro: [no focal neuro deficits] Psych: [Alert], [oriented], [appropriate affect] - Labs CBC & Chem 7: 02/22/20 07:20 02/22/20 07:20 Labs: Abnormal Lab Results - Last 24 Hours (Table) 02/21/20 02/22/20 02/22/20 Range/Units 16:08 07:20 07:20 WBC 3.7 L (3.8-10.6) k/uL RBC 4.10 L (4.30-5.90) m/uL Hgb 12.5 L (13.0-17.5) gm/dL Hct 38.7 L (39.0-53.0) % Chloride 109 H (98-107) mmol/L Carbon Dioxide 31 H (22-30) mmol/L Calcium 10.3 H (8.4-10.2) mg/dL Total Protein 5.7 L (6.3-8.2) g/dL Albumin 3.2 L (3.5-5.0) g/dL Assessment and Plan Assessment: Chronic lower back pain with radiculopathy to the right lower extremity Chronic conditions: CAD, diabetes mellitus, DVT with factor V Leyden, hyper tension, sleep apnea Lumbar spine x-ray shows interpedicular rods and screw transfix L4 to S1 levels bilaterally, mild disc space narrowing and anterior spurring L2-L3, mild disc space narrowing L3-L4. Plans: Patient continues to have uncontrolled pain. Continue Cymbalta. Dilaudid as needed for severe pain. Add oxycodone. Continue Lyrica. Follow PT recommendations. Continue aspirin, Lipitor and metoprolol for history of CAD. Insulin sliding scale with regular Accu-Cheks and hypoglycemic precautions for diabetes mellitus. Continue Xarelto for history of DVT and factor V Leyden. Blood pressure well controlled. CPAP at bedtime for history of sleep apnea. [Patient admitted for chronic lower back pain with radiculopathy to the right lower extremity. Lumbar spine x-ray as above. Patient continues to be in excruciating pain. Continue pain regimen. Follow PT consult. Follow ort hopedic surgery recommendations. Anticipated DC in 1-2 days.]
[2020-02-22] MEDS: oxyCODONE ER 15 MG TAB.ER.12H PO SCH (16:23)
[2020-02-22 17:05] LABS: Glucose,Whole Blood 106 mg/dL (75-99)
[2020-02-22 20:58] LABS: Glucose,Whole Blood 124 mg/dL (75-99)
[2020-02-22] MEDS: ATORVASTATIN 20 MG TAB PO SCH (21:02)
[2020-02-22] MEDS: methylPREDNISolone SOD SUCCI 125 MG/2 ML VIAL IVP SCH (21:04)
[2020-02-22] MEDS: LORazepam 2 MG/ML INJ IV PRN (21:05)
[2020-02-23] MEDS: HYDROmorphone 1 MG/ML 1 ML SYRINGE IVP PRN ×5 (00:06→15:52)
[2020-02-23 06:37] LABS: Glucose,Whole Blood 211 mg/dL (75-99)
[2020-02-23] MEDS: SYMBICORT 160-4.5 MCG INHALER INHALATION SCH (07:30)
[2020-02-23 08:15] VITALS: BP 118/65; PULSE 57; RESP 16; TEMP 98
[2020-02-23] MEDS: PSYLLIUM HUSK 100% 6 GM PACKET PO SCH (08:24)
[2020-02-23] MEDS: INSULIN ASPART (NovoLOG) 100 UNIT/ML VIAL SQ SCH ×2 (08:24→12:21)
[2020-02-23] MEDS: ASPIRIN 81 MG PO SCH (08:25)
[2020-02-23] MEDS: PREGABALIN 25 MG CAP PO SCH (08:25)
[2020-02-23] MEDS: METOPROLOL SUCCINATE (ER) 25 MG TAB.ER.24H PO SCH (08:25)
[2020-02-23] MEDS: DULoxetine HCL 60 MG CAPSULE.DR PO SCH (08:25)
[2020-02-23] MEDS: methylPREDNISolone SOD SUCCI 125 MG/2 ML VIAL IVP SCH (08:25)
[2020-02-23] MEDS: oxyCODONE ER 15 MG TAB.ER.12H PO SCH (08:26)
[2020-02-23] MEDS: RIVAROXABAN 20 MG TAB PO SCH (08:26)
[2020-02-23 11:32] LABS: Glucose,Whole Blood 201 mg/dL (75-99)
--- NOTE | 2020-02-23 11:49 | P.DS ---
Providers Date of admission: 02/21/20 19:20 Expected date of discharge: 02/23/20 Attending physician: Jayashree Valerio MD Consults: 02/21/20 19:23 Consult Physician Stat Consulting Provider: Bin Sage Consult Reason/Comments: Intractable right lower quadrant abdominal pain Do you want consulting provider notified?: Yes 02/21/20 22:31 Consult Physician Routine Consulting Provider: Drea Retana Consult Reason/Comments: RIGHT GROIN PAIN WITH RADICULOPATHY Do you want consulting provider notified?: Yes, Notify in am Primary care physician: [facility] Course: 59-year-old male with PMH of diabetes mellitus, testicular cancer in 1983, factor V laden with BTE, fusion of L4 to S1 presented to the ED for right-sided groin pain radiating down his right lower extremity associated with numbness, chronic lower back pain and radiculopathy. He also had complaints of malfunctioning of his penile prosthesis with aneurysm? This was discussed with urology in the ED who did not think that the problem was related to that and suggested outpatient follow-up. He had an MRI of his lower back scheduled for February 24. He reported Suboxone for pain control at home. CT of the abdomen and pelvis was performed which showed extensive postoperative changes in the abdomen and retroperitoneal region, fusion changes at L4 to S1, penile prosthesis in place with the reservoir appearing deflated in the right lower quadrant. There is no evidence of dissection or aneurysm in the aorta. Patient was admitted for intractable back pain and orthopedic consultation. Orthopedic surgery recommended lumbar spine x-ray. Lumbar spine x-ray showed posterior interpedicular rods and screws transfix L4 to S1, mild disc space narrowing and anterior spurring L2-L3, mild disc space narrowing L3-L4. Orthopedic surgery recommended 2 doses of IV Solu-Medrol. Patient was seen and examined this morning. No acute events overnight. Patient reports minimal improvement with Solu-Medrol. States that oxycodone does not help. Has been requesting Dilaudid [id number]. He denies any chest pain, shortness breath or palpitations. No nausea or vomiting. No fever or chills. General: [non toxic], [no distress], [appears at stated age] Derm: [warm], [dry] Head: [atraumatic], [normocephalic], [symmetric] Eyes: [EOMI], [no lid lag], [anicteric sclera] Mouth: [no lip lesion], [mucus membranes moist] Cardiovascular: [S1S2 reg], [no murmur], [positive DP pulse bilateral], Lungs: [CTA bilateral], [no rhonchi, no rales] , [no accessory muscle use] Abdominal: [soft], [ nontender to palpation], [no guarding], [no appreciable organomegaly] Ext: [no gross muscle atrophy], [no edema], [no contractures] Neuro: [no focal neuro deficits] Psych: [Alert], [oriented], [appropriate affect] Chronic lower back pain with radiculopathy to the right lower extremity Chronic conditions: CAD, diabetes mellitus, DVT with factor V Leyden, hyperten hanane, sleep apnea Lumbar spine x-ray shows interpedicular rods and screw transfix L4 to S1 levels bilaterally, mild disc space narrowing and anterior spurring L2-L3, mild disc space narrowing L3-L4. Status post Solu-Medrol 2 doses IV. Plans: Patient continues to have uncontrolled pain. Continue Cymbalta. Dilaudid as needed for severe pain. Continue oxycodone. Continue Lyrica. Follow PT recommendations. Continue aspirin, Lipitor and metoprolol for history of CAD. Insulin sliding scale with regular Accu-Cheks and hypoglycemic precautions for diabetes mellitus. Continue Xarelto for history of DVT and factor V Leyden. Blood pressure well controlled. CPAP at bedtime for history of sleep apnea. [Patient admitted for chronic lower back pain with radiculopathy to the right lower extremity. Lumbar spine x-ray as above. Patient continues to be in pain. Awaiting orthopedic surgery recommendations. Follow PT consult. Anticipate DC home today if pain better controlled and cleared by orthopedic surgery. He will need to follow urology in the outpatient setting.] Pertinent Studies: CT angiogram, lumbar spine x-ray Patient Condition at Discharge: Stable Plan - Discharge Summary Discharge Rx Participant: No New Discharge Prescriptions: New methylPREDNISolone Dose Pack [Medrol Dose Pack] 4 mg PO DIRECTED #21 package oxyCODONE ER [OxyCONTIN] 30 mg PO Q12HR 7 Days #28 tab Continue Metoprolol Succinate (ER) [Toprol XL] 12.5 mg PO DAILY Budesonide/Formoterol Fumarate [Symbicort 160-4.5 Mcg Inhaler] 2 puff INHALATION RT-BID Ultra T Male Max 1 cap PO DAILY Multivitamins, Thera [Multivitamin (formulary)] 1 tab PO DAILY Aspirin EC [Ecotrin Low Dose] 81 mg PO DAILY Cholecalciferol [Vitamin D3 (25 Mcg = 1000 Iu)] 5,000 unit PO DAILY Calcium Citrate/Vitamin D3 [Citracal + D Maximum Caplet] 1 cap PO DAILY Psyllium Husk [Metamucil] 0.4 gm PO DAILY Rivaroxaban [Xarelto] 20 mg PO DAILY Simvastatin [Zocor] 40 mg PO HS Ergocalciferol [Vitamin D2 (DRISDOL)] 50,000 unit PO SA Pregabalin 50 mg PO TID Folic Acid 1 mg PO DAILY Fenofibrate [Lofibra] 160 mg PO DAILY DULoxetine HCL [Cymbalta] 60 mg PO DAILY Buprenorphine HCl/Naloxone HCl [Buprenorp-Nalox 4-1 mg Sl Film] 1 film SUBLI NGUAL BID PRN PRN Reason: Pain Discharge Medication List Aspirin EC [Ecotrin Low Dose] 81 mg PO DAILY 02/21/20 [History] Budesonide/Formoterol Fumarate [Symbicort 160-4.5 Mcg Inhaler] 2 puff INHALATION RT-BID 02/21/20 [History] Buprenorphine HCl/Naloxone HCl [Buprenorp-Nalox 4-1 mg Sl Film] 1 film SUBLINGUAL BID PRN 02/21/20 [History] Calcium Citrate/Vitamin D3 [Citracal + D Maximum Caplet] 1 cap PO DAILY 02/21/20 [History] Cholecalciferol [Vitamin D3 (25 Mcg = 1000 Iu)] 5,000 unit PO DAILY 02/21/20 [History] DULoxetine HCL [Cymbalta] 60 mg PO DAILY 02/21/20 [History] Ergocalciferol [Vitamin D2 (DRISDOL)] 50,000 unit PO SA 02/21/20 [History] Fenofibrate [Lofibra] 160 mg PO DAILY 02/21/20 [History] Folic Acid 1 mg PO DAILY 02/21/20 [History] Metoprolol Succinate (ER) [Toprol XL] 12.5 mg PO DAILY 02/21/20 [History] Multivitamins, Thera [Multivitamin (formulary)] 1 tab PO DAILY 02/21/20 [History] Pregabalin 50 mg PO TID 02/21/20 [History] Psyllium Husk [Metamucil] 0.4 gm PO DAILY 02/21/20 [History] Rivaroxaban [Xarelto] 20 mg PO DAILY 02/21/20 [History] Simvastatin [Zocor] 40 mg PO HS 02/21/20 [History] Ultra T Male Max 1 cap PO DAILY 02/21/20 [History] methylPREDNISolone Dose Pack [Medrol Dose Pack] 4 mg PO DIRECTED #21 package 02/23/20 [Rx] oxyCODONE ER [OxyCONTIN] 30 mg PO Q12HR 7 Days #28 tab 02/23/20 [Rx] Follow up Appointment(s)/Referral(s): Joe Weaver DO [Primary Care Provider] - 1-2 days Drea Retana DO [Doctor of Osteopathic Medicine] - 1 Week Patient Instructions/Handouts: Abdominal Pain (ED) Activity/Diet/Wound Care/Special Instructions: Diet: Low-salt Follow-up PCP within 3 days of discharge. Follow-up with orthopedic surgery within 1 week of discharge. Take all medications as advised. Discharge Disposition: HOME SELF-CARE
--- NOTE | 2020-02-23 13:51 | P.PN ---
Subjective Progress Note Date: 02/23/20 CHIEF COMPLAINT: Right lower quadrant abdominal pain HISTORY OF PRESENT ILLNESS: Patient still reporting some pain. It has improved with the IV Solu-Medrol. He is tolerating regular diet. He denies any nausea or vomiting. He is afebrile. PHYSICAL EXAM: VITAL SIGNS: Reviewed. GENERAL: Well-developed in no acute distress. HEENT: No sclera icterus. Extraocular movements grossly intact. Moist buccal mucosa. Head is atraumatic, normocephalic. ABDOMEN: Soft. Nondistended. Nontender. NEUROLOGIC: Alert and oriented. Cranial nerves II through XII grossly intact. ASSESSMENT: 1. Right lower quadrant groin pain likely related to patient's orthopedic problems. He has a known lumbar back fusion with chronic back pain and pain now radiating down his right leg. 2. 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 History of DVT and factor V Leiden on Xarelto and history of IVC filter PLAN: -No surgical intervention from general surgery standpoint -Continue regular diet -Continue with orthopedic recommendations -Patient can be discharged from surgical standpoint. Physician Physical Therapy Resident note has been reviewed by physician. Signing provider agrees with the documented findings, assessment, and plan of care. Objective - Vital Signs Vital signs: Vital Signs Temp 98 F 02/23/20 08:11 Pulse 57 L 02/23/20 08:11 Resp 16 02/23/20 08:11 BP 118/65 02/23/20 08:11 Pulse Ox 97 02/23/20 08:11 Intake & Output 02/22/20 02/23/20 02/23/20 18:59 06:59 18:59 Intake Total 420 Balance 420 Weight 77.111 kg Intake: Oral 420 Other: Voiding Method Toilet Toilet Toilet # Voids 1 1 1 - Labs CBC & Chem 7: 02/22/20 07:20 02/22/20 07:20 Labs: Abnormal Lab Results - Last 24 Hours (Table) 02/22/20 02/22/20 02/23/20 Range/Units 17:02 20:56 06:36 POC Glucose (mg/dL) 106 H 124 H 211 H (75-99) mg/dL 02/23/20 Range/Units 11:30 POC Glucose (mg/dL) 201 H (75-99) mg/dL
--- NOTE | 2020-02-23 16:38 | P.PN ---
Subjective Progress Note Date: 02/23/20 This patient is a 59 year old male with a past medical history of diabetes, testicular cancer, factor V leiden, DVT currently on Xarelto, lumbar fusion L4- S1 that presented today [facility] emergency department on 02/21/20 with complaints of right lower quadrant pain, with radiation into the groin. He was treated by his PCP on an outpatient basis with oral antibiotics, with no relief. Patient was also referred to orthopedic surgery for back pain. Patient states he was referred to a spine surgeon in [place]. He states he has a history of a lumbar fusion about 5 years, until he began experiencing an increase in low back pain about 3-4 months ago. He states the spine surgeon in [place] ordered an MRI, which was scheduled for February 24. Patient presented to ED yesterday due to increasing right lower quadrant pain. CT abdomen showed no obvious pathology. Patient was admitted under the care of internal medicine with a consult placed to general surgery and orthopedic surgery. At the time of my exam, the patient is complaining of right lower quadrant pain. He is also complaining of mild low back pain. He states he is experiencing pain that radiates down the right leg into the foot. He states that pain is chronic, although has been increasing in 3-4 months. There was no injury. He states he takes suboxone for pain, he used to take Percocet, but patient states it was choice to switch to suboxone. He denies bowel or bladder incontinence. He denies saddle paresthesias. He states he otherwise feels well. He denies severe, chills, nausea, vomiting. Vital signs stable. 02/23/20: Patient is examined bedside this morning. He state the two doses of IV solu-medrol did not improve his pain. He continues to experience right lower quadrant pain with radiation into the right groin, and low back pain. He denies additional complaints. He denies chest pain, shortness of breath, nausea, vomiting, fevers, chills. Objective - Vital Signs Vital signs: Vital Signs Temp 98 F 02/23/20 08:11 Pulse 57 L 02/23/20 08:11 Resp 16 02/23/20 08:11 BP 118/65 02/23/20 08:11 Pulse Ox 97 02/23/20 08:11 Intake & Output 02/22/20 02/23/20 02/23/20 18:59 06:59 18:59 Intake Total 420 Balance 420 Weight 77.111 kg Intake: Oral 420 Other: Voiding Method Toilet Toilet Toilet # Voids 1 1 1 - Exam On examination, the patient is lying in bed in no apparent distress. He is alert and oriented 3. His head appears normocephalic and. His palate appears nonlabored. On inspection of the low back there is no ecchymosis, erythema, skin discoloration. No open wounds or lacerations. There is mild pain on palpation of the lumbar spine. No pain on palpation of the C-spine, thoracic spine. Patient has full strength in his bilateral lower extremities. He is able to perform a straight leg raise bilaterally. No weakness with hip flexion, and plantarflexion or dorsiflexion of the ankle or great toe. Motor and sensory is intact in the bilateral extremities. Dorsalis pedis pulse +2. Bilateral lower extremities are warm and well perfused with brisk capillary refill distally. Calf soft and nontender to palpation bi laterally. - Labs CBC & Chem 7: 02/22/20 07:20 02/22/20 07:20 Labs: Abnormal Lab Results - Last 24 Hours (Table) 02/22/20 02/22/20 02/23/20 Range/Units 17:02 20:56 06:36 POC Glucose (mg/dL) 106 H 124 H 211 H (75-99) mg/dL 02/23/20 Range/Units 11:30 POC Glucose (mg/dL) 201 H (75-99) mg/dL Assessment and Plan Assessment: Low back pain History of lumbar fusion about 5 years ago by outside surgeon Plan: - The clinical and imaging findings were discussed with the patient. Patient is unable to have MRI of the lumbar spine performed at this facility due to patient's inability to provide full, accurate surgical history. - Patient was subsequently seen and examined by Dr. Retana. Patient is ok for discharge from an orthopedic standpoint. Recommended he follow-up with his spine surgeon for further treatment upon discharge.
== END 2020-02-23 15:58 | disposition home or self-care (01) ==
LOC: EC 15:22 → 1SOBS 19:20
PROVIDERS: ADMIT Internal Medicine; ATTEND Internal Medicine
DX: G89.29 Other chronic pain (principal); M54.5 Low back pain; M54.10 Radiculopathy, site unspecified; I25.10 Atherosclerotic heart disease of native coronary artery without angina pectoris; E11.9 Type 2 diabetes mellitus without complications; E78.5 Hyperlipidemia, unspecified; I10 Essential (primary) hypertension; I25.2 Old myocardial infarction; Z98.1 Arthrodesis status; F17.200 Nicotine dependence, unspecified, uncomplicated; D68.51 Activated protein C resistance; E78.00 Pure hypercholesterolemia, unspecified; R63.4 Abnormal weight loss; R10.31 Right lower quadrant pain; L40.50 Arthropathic psoriasis, unspecified; F32.9 Major depressive disorder, single episode, unspecified; Z90.79 Acquired absence of other genital organ(s); Z90.5 Acquired absence of kidney; Z86.718 Personal history of other venous thrombosis and embolism; Z85.47 Personal history of malignant neoplasm of testis; Z96.652 Presence of left artificial knee joint; Z96.0 Presence of urogenital implants; Z87.01 Personal history of pneumonia (recurrent); Z88.8 Allergy status to other drugs, medicaments and biological substances; Z79.82 Long term (current) use of aspirin; Z79.51 Long term (current) use of inhaled steroids; Z79.899 Other long term (current) drug therapy; Z79.01 Long term (current) use of anticoagulants; Z79.891 Long term (current) use of opiate analgesic; Z82.61 Family history of arthritis; Z83.79 Family history of other diseases of the digestive system; Z82.49 Family history of ischemic heart disease and other diseases of the circulatory system
CPT/HCPCS: 96375 ×2; 96376 ×3; 96361; 96374; 99285; 36415; 94640 ×3; 80053 ×2; 85025 ×2; 85610; 85730; 86140; 81003; 72100; 75635; G0378 ×3; J2060 ×2; J2270; J2930 ×2; J1170 ×3; J1885; Q9967

== ENCOUNTER 2023-06-19 11:50 | Day surgery (SDC) | payer MEDICARE ==
--- NOTE | 2023-06-19 10:44 | P.GSHP ---
History of Present Illness H&P Date: 06/19/23 Chief Complaint: Right lower back lipoma 63-year-old male seen in the office in December. He and I spoke again earlier this week. Patient complains of a bulge in the right lower back that is increasing in size. Becoming larger and more uncomfortable. He has a history of previous lipomas. On exam a 2 x 4 cm right lower back lipoma was identified. Earlier this week he called stating he was having significant increase in pain in his right lower back with radiation down the right leg. Apparently he had an MRI done recently through his back surgeon. He spoke with his back surgeon regarding his increased complaints and symptoms and was advised to have the lipoma removed first to see if this helped with his symptoms. Past Medical History Past Medical History: Coronary Artery Disease (CAD), Cancer, CVA/TIA, Diabetes Mellitus, Deep Vein Thrombosis (DVT), GERD/Reflux, Hyperlipidemia, Hypertension, Liver Disease, Myocardial Infarction (MA), Pneumonia, Prostate Disorder, Pulmonary Embolus (PE) Additional Past Medical History / Comment(s): Factor 5, sleep apnea resolved with weight loss, cancer left testicular, gynocomastia wih surgical correction, psoriatic arthritis , diet controlled diabetes. hx of MIRANDA. TIA x4 - mild swelling to left hand, only has rt kidney, staph infection to left leg 02/2023 8 weeks iv antibiotics. currently being tx for flank pain ? uti. angioedema uticaria, recent hx of tooth issues that pt was prescribed abx and steroids but did not take. Last Myocardial Infarction Date:: 2012 History of Any Multi-Drug Resistant Organisms: None Reported Past Surgical History: Back Surgery, Heart Catheterization, Hernia Repair, Joint Replacement, Orthopedic Surgery Additional Past Surgical History / Comment(s): 2 Cervical/ 4back fusion , left testicle removed related to cancer, lymph node dissection, ileum loop sx, left kidney removed, left knee partial replacement, penile pump defective , right shoulder sx, IVC filter, neck and arm tumor removal, colonoscopies with polyp removal. TURP, heart cath 2021. nasal surgery from injury. several abd hernia repairs.2 lipomas removed from neck. acl left knee. knee ablation at [facility] Past Anesthesia/Blood Transfusion Reactions: No Reported Reaction Past Psychological History: Depression Smoking Status: Current every day smoker Past Alcohol Use History: Occasional Additional Past Alcohol Use History / Comment(s): smokes 1 ppd for 40 yrs Past Drug Use History: None Reported - Past Family History Mother Additional Family Medical History / Comment(s): arthritis Father Additional Family Medical History / Comment(s): AAA Brother(s) Family Medical History: No Reported History Sister(s) Family Medical History: No Reported History Son(s) Additional Family Medical History / Comment(s): bowel issues- bleeding Medications and Allergies Home Medications Medication Instructions Recorded Confirmed Type Aspirin EC [Ecotrin Low Dose] 81 mg PO DAILY 02/21/20 06/13/23 History Budesonide/Formoterol Fumarate 2 puff INHALATION RT-BID PRN 02/21/20 06/13/23 History [Symbicort 160-4.5 Mcg Inhaler] Cholecalciferol [Vitamin D3 (25 5,000 unit PO DAILY 02/21/20 06/13/23 History Mcg = 1000 Iu)] DULoxetine HCL [Cymbalta] 60 mg PO DAILY 02/21/20 06/13/23 History Ergocalciferol [Vitamin D2 50,000 unit PO SA 02/21/20 06/13/23 History (DRISDOL)] Folic Acid 1 mg PO DAILY 02/21/20 06/13/23 History Pregabalin 50 mg PO TID 02/21/20 06/13/23 History Rivaroxaban [Xarelto] 20 mg PO DAILY 02/21/20 06/13/23 History HYDROcodone/APAP 5-325MG [Tullos 1 tab PO Q6HR PRN 02/18/23 06/13/23 History 5-325] Unk Selene 180 1 tab PO DAILY 02/18/23 06/13/23 History amLODIPine BESYLATE [Amlodipine 10 mg PO DAILY 02/18/23 06/13/23 History Besylate] hydrALAZINE HCL 25 mg PO DAILY 02/18/23 06/13/23 History Sulfamethoxazole/Trimethoprim 1 each PO BID 06/13/23 06/13/23 History [Bactrim 400-80 mg Tablet] Unk Testosterone Supp 1 tab PO DAILY 06/13/23 06/13/23 History Unk Vitamin B12 1 tab PO DAILY 06/13/23 06/13/23 History Allergies Allergy/AdvReac Type Severity Reaction Status Date / Time baclofen AdvReac Confusion Verified 06/13/23 15:47 Surgical - Exam Physical exam: General: Well-developed, well-nourished HEENT: Normocephalic, sclerae nonicteric Abdomen: Nontender, nondistended Extremities: No edema, 2 x 4 cm right lower back lipoma tender to touch Neuro: Alert and oriented Assessment and Plan (1) Lipoma of back Narrative/Plan: 63-year-old male with symptomatic lipoma right lower back. Will proceed with surgical excision at this time. Risks of ongoing pain, numbness, nerve injury, bleeding, infection, recurrence all reviewed. Patient is agreeable and would like to proceed. Status: Acute Code(s): D17.1 - BENIGN LIPOMATOUS NEOPLASM OF SKIN, SUBCU OF TRUNK SNOMED Code(s): 296801500
[~2023-06-19 11:50] MED LIST: LIDOCAINE 1% (10MG/ML) FOR IV START INTRADERMA PRN; Pre Op ABX Message 1 EACH MISC MISCELLANE ONE; droPERidol 5 MG/2 ML VIAL IVP ONE
[2023-06-19] MEDS: LACTATED RINGERS 1,000 ML IV SCH (12:40)
[2023-06-19] MEDS: ACETAMINOPHEN TAB 500 MG TAB PO PRN (12:55)
[2023-06-19] MEDS: HEPARIN SODIUM,PORCINE 5,000 UNIT/ML 1 ML VIAL SQ PRN (12:55)
[2023-06-19] MEDS: ONDANSETRON 4 MG/2 ML VIAL IVP ONE (12:55)
[2023-06-19] MEDS: DEXAMETHASONE SOD PHOSPHATE 4 MG/ML 1 ML VIAL IV ONE (12:55)
[2023-06-19 13:03] LABS: Glucose,Whole Blood 90 mg/dL (70-110)
[2023-06-19] MEDS ORDERED: KETOROLAC 15 MG/ML 1 ML VIAL ONE (13:10)
[2023-06-19] MEDS ORDERED: ePHEDrine 50 MG/ML 1 ML VIAL ONE (13:10)
[2023-06-19] MEDS ORDERED: MIDAZOLAM 2 MG/2 ML VIAL ONE (13:10)
[2023-06-19] MEDS ORDERED: LIDOCAINE 1% INJ 10MG/ML (20 ML MDV) ONE (13:10)
[2023-06-19] MEDS ORDERED: fentaNYL (PF) 50 MCG/ML 2 ML AMP ONE (13:10)
[2023-06-19] MEDS ORDERED: PROPOFOL 10 MG/ML 20 ML VIAL IV ONE (13:10)
[2023-06-19] MEDS: LIDOCAINE 1% INJ 10MG/ML (20 ML MDV) SQ ONE (13:11)
[2023-06-19] MEDS ORDERED: NALOXONE 0.4 MG/ML 1 ML VIAL IV PRN (13:41)
[2023-06-19] MEDS ORDERED: HYDROcodone/APAP 5-325MG 1 EACH TAB PO PRN (13:41)
--- NOTE | 2023-06-19 13:43 | P.OP ---
Date of Procedure: 06/19/23 Procedure(s) Performed: PREOPERATIVE DIAGNOSIS: Right lower back mass POSTOPERATIVE DIAGNOSIS: Right buttock mass PROCEDURE: Excision right buttock mass with intermediate closure SURGEON: Elan EBL: 5 cc ANESTHESIA: General COMPLICATIONS: None OPERATIVE PROCEDURE: Patient placed in the left decubitus position. The patient was present more in the right buttock region than the back itself. A horizontal incision was made overlying the palpable mass. The mass measured 2 x 4 cm. This appeared to be calcified fatty tissue. This was fully excised. Subcutaneous tissue was closed using interrupted 3-0 Vicryl sutures. Length of intermediate closure 5 cm. Skin closed using 4-0 Monocryl subcuticular sutures. Skin glue and sterile dressing applied. DISPOSITION: Stable to recovery room
[2023-06-19] MEDS: HYDROmorphone 0.5 MG/0.5 ML SYRINGE IVP PRN (14:01)
[2023-06-19 14:08] LABS: Glucose,Whole Blood 95 mg/dL (70-110)
[2023-06-19 14:09] VITALS: TEMP 98.6
[2023-06-19 15:48] VITALS: BP 125/61; PULSE 79; RESP 18
== END 2023-06-19 16:00 | disposition home or self-care (01) ==
LOC: OR 11:50
PROVIDERS: ATTEND Surgery
DX: D17.1 Benign lipomatous neoplasm of skin and subcutaneous tissue of trunk (principal); E11.9 Type 2 diabetes mellitus without complications; E78.5 Hyperlipidemia, unspecified; G47.30 Sleep apnea, unspecified; I10 Essential (primary) hypertension; I25.10 Atherosclerotic heart disease of native coronary artery without angina pectoris; I25.2 Old myocardial infarction; K21.9 Gastro-esophageal reflux disease without esophagitis; F17.200 Nicotine dependence, unspecified, uncomplicated; Z79.01 Long term (current) use of anticoagulants; Z79.51 Long term (current) use of inhaled steroids; Z79.890 Hormone replacement therapy; Z86.718 Personal history of other venous thrombosis and embolism; Z86.73 Personal history of transient ischemic attack (TIA), and cerebral infarction without residual deficits; Z87.440 Personal history of urinary (tract) infections; Z86.711 Personal history of pulmonary embolism
CPT/HCPCS: 21931; 88307; 88311; J2250; J1644; J1100; J2405; J2001; J3010; J1885; J2704; J1170